=== PATIENT | female | born 1985 | race Caucasian/White ===

== ENCOUNTER 2017-06-03 08:18 | Inpatient (IN) | payer OTHER ==
[2017-06-03] VITALS (18 sets, daily range): BP systolic 119–155; BP diastolic 66–88
[~2017-06-03] VITALS: Ht 167.6 cm; Wt 84.8 kg
[~2017-06-03 08:18] MED LIST: Motrin PO; Percocet 5/325,Endoc PO
[2017-06-03 10:18] LABS: HEMATOCRIT 33.4 % (36.0-46.0); HEMOGLOBIN 10.9 G/DL (11.9-15.5); MCH 26.8 PG (29.0-34.0); MCHC 32.6 G/DL (30.0-36.0); MCV 82.3 FL (83-99); PLATELET COUNT 196 K/uL (156-360); RBC DIS.WIDTH-CV 14.6 % (11.8-14.6); RBC DIS.WIDTH-SD 43.6 % (39-53); RED BLOOD COUNT 4.06 M/uL (3.80-5.20); WHITE BLOOD COUNT 9.1 K/uL (4.1-10.2)
[2017-06-03 10:47] LABS: ANISOCYTOSIS 1+; BASOPHIL (%) 0.5 % (0-1); BASOPHIL COUNT 0.1 K/uL (0-0.1); EOSINOPHIL (%) 0.2 % (0-5); LYMPHOCYTE (%) 27.9 % (15-42); LYMPHOCYTE COUNT 2.6 K/uL (1.0-2.8); MONOCYTE (%) 5.4 % (3-12); MONOCYTE COUNT 0.5 K/uL (0-0.8); NEUTROPHIL COUNT 5.8 K/uL (1.8-6.4); PLAT.SUFFICIENCY ADEQUATE
[2017-06-03 11:03] LABS: AMPHETAMINE NEGATIVE (500 ng/mL); BARBITURATES NEGATIVE (200 ng/mL); BENZODIAZEPINES NEGATIVE (150 ng/mL); BUPRENORPHINE NEGATIVE (10 ng/mL); COCAINE NEGATIVE (150 ng/mL); METHADONE NEGATIVE (200 ng/mL); METHAMPHETAMINE NEGATIVE (500 ng/mL); OPIATES (MORPHINE) NEGATIVE (100 ng/mL); OXYCODONE NEGATIVE (100 ng/mL); PHENCYCLIDINE NEGATIVE (25 ng/mL); PROPOXYPHENE NEGATIVE (300 ng/mL); THC CANNABINOIDS NEGATIVE (50 ng/mL); TRICYCLIC ANTIDEPRESSANTS NEGATIVE (300 ng/mL)
[2017-06-04 06:12] LABS: BASOPHIL (%) 0.2 % (0-1); EOSINOPHIL (%) 0.1 % (0-5); HEMATOCRIT 31.7 % (36.0-46.0); HEMOGLOBIN 10.3 G/DL (11.9-15.5); IMMATURE GRANULOCYTE (%) 0.8 % (0.0-0.7); LYMPHOCYTE (%) 18.2 % (15-42); MCH 26.6 PG (29.0-34.0); MCHC 32.5 G/DL (30.0-36.0); MCV 81.9 FL (83-99); MONOCYTE (%) 4.1 % (3-12); MONOCYTE COUNT 0.7 K/uL (0-0.8); NEUTROPHIL (%) 76.6 % (45-76); NEUTROPHIL COUNT 12.8 K/uL (1.8-6.4); PLATELET COUNT 192 K/uL (156-360); RBC DIS.WIDTH-CV 14.6 % (11.8-14.6); RBC DIS.WIDTH-SD 43.1 % (39-53); RED BLOOD COUNT 3.87 M/uL (3.80-5.20); WHITE BLOOD COUNT 16.7 K/uL (4.1-10.2)
[2017-06-04 07:16] VITALS: BP 135/65
[2017-06-04 10:36] LABS: ALBUMIN 3.5 G/DL (3.2-4.8); ALKALINE PHOSPHATASE 191 IU/L (3-129); ALT (GPT) 25 IU/L (3-49); AST (GOT) 31 IU/L (2-34); CHLORIDE 106 MEQ/L (99-109); CREATININE 0.6 MG/DL (0.6-1.3); GFR ESTIMATE (CALCULATED) > 59 mL/min/; GLUCOSE 112 mg/dL (70-99); POTASSIUM 4.3 MEQ/L (3.7-5.4); SODIUM 139 MEQ/L (136-147); TOTAL BILIRUBIN 0.4 MG/DL (0.0-1.0); TOTAL PROTEIN 5.7 G/DL (6.4-8.3); UREA NITROGEN (BUN) 6 mg/dL (9-23)
[2017-06-04 11:15] VITALS: BP 112/74
[2017-06-04 13:52] LABS: APPEARANCE SL.HAZY ((CLEAR)); BILIRUBIN NEGATIVE; BLOOD LARGE; COLOR YELLOW ((YELLOW)); GLUCOSE (STRIP) NEGATIVE; KETONES NEGATIVE; LEUKOCYTES MODERATE; NITRITE NEGATIVE; PROTEIN (STRIP) 30; SPECIFIC GRAVITY 1.017 (1.000-1.030); UROBILINOGEN 0.2 MG/DL (0.2-1.0)
[2017-06-04 14:25] LABS: BACTERIA RARE /HPF; CALCIUM OXALATE CRYSTALS 1+ /HPF; EPITHELIAL CELLS RARE /HPF; MUCUS 1+ /LPF; RED BLOOD CELLS TNTC /HPF (0-5); UCUL ADDED? YES; WHITE BLOOD CELLS 20-30 /HPF (0-5)
[2017-06-04 15:00] VITALS: BP 128/81
[2017-06-04 19:51] VITALS: BP 132/70
[2017-06-04 23:30] LABS: UR CREATININE CONCENTRATION 38.8 MG/DL
[2017-06-05 03:42] LABS: LACTATE DEHYDROGENASE 314 IU/L (20-246)
[2017-06-05 06:59] VITALS: BP 136/74
== END 2017-06-05 15:00 | disposition home or self-care (01) | DRG 775 ==
LOC: LDRP-OP 08:18 → 2WEST 08:19 → LDRP-OP 18:44 → 2WEST 20:39
PROVIDERS: Advanced Practice Midwife; Obstetrics & Gynecology
DX: O41.03X0 Oligohydramnios, third trimester, not applicable or unspecified (principal); O99.214 Obesity complicating childbirth; E66.9 Obesity, unspecified; J45.909 Unspecified asthma, uncomplicated; Z37.0 Single live birth; Z3A.40 40 weeks gestation of pregnancy; O99.52 Diseases of the respiratory system complicating childbirth
CPT/HCPCS: 80053; 81003; 82570; 83615; 84156; 84550; 85025; 87086; J7120